=== PATIENT | male | born 2005 | race Caucasian/White ===

== ENCOUNTER 2023-12-19 12:09 | Emergency (ER) | payer BC, SELFPAY ==
--- NOTE | 2023-12-19 12:17 | ED_ITS ---
HPI - Skin/Abscess/Foreign Bdy General Chief complaint: Skin/Abscess/Foreign Body Stated complaint: Insect bite on neck Time Seen by Provider: 12/19/23 12:50 Source: patient Mode of arrival: ambulatory Limitations: no limitations History of Present Illness HPI narrative: Tom is a 18-year-old male patient presenting to the clinic today with complaints of a insect bite to his neck. He reports he noticed a tick embedded in to the left anterior neck approximately 1 hour prior to arrival. He had been deer hunting earlier this week in and suspects that he got the tick bite from being out the [place]. Thinks he may have been bitten today day possibly but is unsure. Has redness and swelling around the tick bite. Attempted to remove the tick using a pair of tweezers and part of the tick remains in the skin. Related Data Allergies Allergy/AdvReac Type Severity Reaction Status Date / Time No Known Allergies Allergy Verified 12/19/23 12:37 Review of Systems Review of Systems: Pertinent positives per HPI. Patient denies any fever, chills, rash, headache, visual changes, dizziness, cough, runny nose, sore throat, shortness of breath, chest pain, palpitations, nausea, vomiting, diarrhea, constipation, abdominal pain, or any urinary issues. PMFSH Comments At the time of my signature, I reviewed and agree with the nursing past medical, surgical, social, and family history. There is no relevant family history pertinent to the patient complaint. Exam Narrative: General: Well-developed, well nourished, in no apparent distress Head: Normocephalic, atraumatic. Cardio: Regular rate and rhythm, s1 and s2 normal, no murmur appreciated. Resp: Clear to auscultation bilaterally, no rhonchi, rales, wheezing or rubs. Integumentary: [place], warm, and dry, reminents of tick imbedded into the left anterior neck. Mild redness and swelling, ttp Course Course Emergency Course: Portions of this record may have been created with voice recognition software. Level of Care: Express Care Visit Vital Signs Vital signs: Vital signs reviewed MDM - Skin/Abscess/Foreign Bdy MDM Narrative Medical decision making narrative: At the time of visit patient is resting comfortably on the exam table. Patient appears to be nontoxic. Plan: Area was cleansed with antiseptic wound wash. Tick remnants was removed using the bevel of an 18 gauge needle. Removal was successful. Area was rewash with antiseptic wound wash. Patient tolerated well. E[place] was applied. Supportive measures were discussed with the patient and they voiced understanding discharge instructions and agrees to treatment plan. Return precautions reviewed Differential Diagnosis Differential diagnosis: Likely abscess of skin or subcutaneous tissue, viral e xanthem, dermatophytosis, urticaria, herpes zoster, allergic reaction to drug, cellulitis, eczema, insect bites, impetigo and contact dermatitis Discharge Plan Discharge Clinical Impression: Tick bite of neck Patient Disposition: Home, Self-Care Condition: Stable Instructions: Antibiotic Form, Tick Bite (ED) Additional Instructions: Keep area clean and dry Take doxycycline 200 mg by mouth x1 dose Watch for signs and symptoms of infection-redness, swelling, increasing pain, purulent discharge, streaking, or fever May take Tylenol/Motrin as needed for pain or fever. Go to the emergency room if you develop worsening of symptoms such as infection,rash, body aches, chills, fever, or joint pain. Prescriptions: New doxycycline monohydrate 100 mg capsule 200 mg PO DAILY 1 Days Qty: 2 0RF Follow-up/Referrals: PHYSICIAN,BANDAGE WRAPPING MACHINE OPERATOR [Primary Care Provider] - Time of Disposition: 13:06 Quality NIHSS Nursing Documentation ED NIHSS nursing documentation: reviewed/agree
[2023-12-19 12:32] VITALS: BP 142/80; PULSE 63; RESP 16; TEMP 36.3; O2SAT 99
== END 2023-12-19 13:07 | disposition home or self-care (01) ==
PROVIDERS: Emergency Provider Nurse Practitioner Family
DX: S10.96XA Insect bite of unspecified part of neck, initial encounter (principal); W57.XXXA Bitten or stung by nonvenomous insect and other nonvenomous arthropods, initial encounter
CPT/HCPCS: 99203; G0463